=== PATIENT | female | born 1975 | race Caucasian/White ===

== ENCOUNTER 2016-08-19 00:08 | Emergency (ER) | payer OTHER ==
[~2016-08-19] VITALS: Ht 165.1 cm; Wt 111.7 kg
[~2016-08-19 00:08] MED LIST: ATARAX,VISTARIL50 MG PO; ESCITALOPRAM OX10 MG PO; FLEXERIL10 MG PO; JUNEL FE 1.5-31 EACH PO; LISINOPRIL10 MG PO; LISINOPRIL20 MG PO; MOBIC15 MG PO; NAPROSYN500 MG PO; VENTOLIN HFA18 GM IH; Vicodin,Norco 5/325 PO; ZOFRAN4 MG PO; oxyCODONE PO
[2016-08-19] MEDS ORDERED: LOSARTAN POTASS50 MG PO (00:48)
[2016-08-19] MEDS ORDERED: AMLODIPINE BESYL5 MG PO (00:48)
[2016-08-19 01:14] LABS: ADD MIUA? YES; BILIRUBIN NEGATIVE; BLOOD LARGE; COLOR YELLOW ((YELLOW)); GLUCOSE (STRIP) NEGATIVE; KETONES NEGATIVE; LEUKOCYTES NEGATIVE; NITRITE NEGATIVE; PROTEIN (STRIP) NEGATIVE; SPECIFIC GRAVITY 1.028 (1.000-1.030); UROBILINOGEN 0.2 MG/DL (0.2-1.0)
[2016-08-19 01:23] LABS: AMPHETAMINE NEGATIVE (500 ng/mL); BARBITURATES NEGATIVE (200 ng/mL); BENZODIAZEPINES NEGATIVE (150 ng/mL); COCAINE NEGATIVE (150 ng/mL); INTERNAL CONTROLS VALID? YES; METHADONE NEGATIVE (200 ng/mL); METHAMPHETAMINE NEGATIVE (500 ng/mL); OPIATES (MORPHINE) NEGATIVE (100 ng/mL); OXYCODONE NEGATIVE (100 ng/mL); PHENCYCLIDINE NEGATIVE (25 ng/mL); PROPOXYPHENE NEGATIVE (300 ng/mL); THC CANNABINOIDS NEGATIVE (50 ng/mL); TRICYCLIC ANTIDEPRESSANTS NEGATIVE (300 ng/mL)
[2016-08-19 01:26] LABS: BASOPHIL COUNT 0.1 K/uL (0-0.1); EOSINOPHIL (%) 3.2 % (0-5); EOSINOPHIL COUNT 0.3 K/uL (0-0.3); HEMATOCRIT 38.7 % (36.0-46.0); IMMATURE GRANULOCYTE (%) 0.1 % (0.0-0.7); IMMATURE GRANULOCYTE COUNT 0.1 K/uL; LYMPHOCYTE COUNT 2.4 K/uL (1.0-2.8); MCH 30.5 PG (29.0-34.0); MCHC 34.4 G/DL (30.0-36.0); MCV 88.8 FL (83-99); MEAN PLAT.VOLUME 10.7 uM^3 (9.5-12.4); MONOCYTE (%) 6.5 % (3-12); MONOCYTE COUNT 0.6 K/uL (0-0.8); NEUTROPHIL (%) 60.9 % (45-76); NEUTROPHIL COUNT 5.2 K/uL (1.8-6.4); PLATELET COUNT 242 K/uL (156-360); RBC DIS.WIDTH-CV 13.1 % (11.8-14.6); RBC DIS.WIDTH-SD 41.9 % (39-53); RED BLOOD COUNT 4.36 M/uL (3.80-5.20); WHITE BLOOD COUNT 8.5 K/uL (4.1-10.2)
[2016-08-19 01:34] LABS: AMYLASE 28 IU/L (1-118); CHLORIDE 105 mEq/L (99-109); POTASSIUM 3.4 mEq/L (3.7-5.4); SODIUM 140 mEq/L (136-147)
[2016-08-19 01:35] LABS: CASTS NONE SEEN /LPF; EPITHELIAL CELLS 1+; MUCUS NONE SEEN; RED BLOOD CELLS NONE SEEN /HPF (0-5)
[2016-08-19 01:36] LABS: BACTERIA RARE; CRYSTALS NONE SEEN; UCUL ADDED? NO; WHITE BLOOD CELLS 0-5 /HPF (0-5)
[2016-08-19 01:36] LABS: GLUCOSE 89 mg/dL (70-99)
[2016-08-19 01:38] LABS: ANION GAP 12 MEQ/L (2-14)
[2016-08-19 01:39] LABS: SERUM ETHYL ALCOHOL < 10 mg/dL
[2016-08-19 01:40] LABS: GFR ESTIMATE (CALCULATED) > 59 mL/min/
[2016-08-19 01:41] LABS: UREA NITROGEN (BUN) 18 mg/dL (9-23)
[2016-08-19 01:43] LABS: LIPASE 26 U/L (1.0-51.0)
[2016-08-19 01:49] LABS: QUANTITATIVE HCG < 4.0 MIU/ML
[2016-08-19] MEDS ORDERED: MOTRIN800 MG PO (02:14)
[2016-08-19] MEDS ORDERED: FLEXERIL10 MG PO (02:14)
[2016-08-19 02:37] VITALS: BP 133/80
== END 2016-08-19 02:39 | disposition home or self-care (01) ==
LOC: EME → EDBD 00:08 → EME 02:39
PROVIDERS: Emergency Medicine
DX: S20.219A Contusion of unspecified front wall of thorax, initial encounter (principal); S80.01XA Contusion of right knee, initial encounter; S93.601A Unspecified sprain of right foot, initial encounter; I10 Essential (primary) hypertension; V49.40XA Driver injured in collision with unspecified motor vehicles in traffic accident, initial encounter
CPT/HCPCS: 71020; 73030; 73564; 73630; 80048; 81003; 82150; 83690; 84702; 85025; 86850; 86900; 86901; 93005; 99281; 99284; G0480

== ENCOUNTER 2018-01-23 11:56 | Emergency (ER) | payer OTHER ==
[~2018-01-23] VITALS: Ht 165.1 cm; Wt 106.3 kg
[~2018-01-23 11:56] MED LIST changes: +AMLODIPINE BESYL5 MG PO; +LOSARTAN POTASS50 MG PO; +MOTRIN800 MG PO
[2018-01-23 12:37] LABS: HEMATOCRIT 39.1 % (36.0-46.0); HEMOGLOBIN 13.8 G/DL (11.9-15.5); MCH 31.4 PG (29.0-34.0); MCHC 35.3 G/DL (30.0-36.0); MCV 88.9 FL (83-99); PLATELET COUNT 225 K/uL (156-360); RBC DIS.WIDTH-CV 12.4 % (11.8-14.6); RBC DIS.WIDTH-SD 40.6 % (39-53)
[2018-01-23 12:42] LABS: ALBUMIN 5.2 g/dL (3.2-4.8); CHLORIDE 99 mEq/L (99-109); POTASSIUM 3.7 mEq/L (3.7-5.4); SODIUM 139 mEq/L (136-147)
[2018-01-23 12:45] LABS: GLUCOSE 124 mg/dL (70-99)
[2018-01-23 12:46] LABS: TOTAL BILIRUBIN 0.8 mg/dL (0.0-1.0)
[2018-01-23 12:48] LABS: ALKALINE PHOSPHATASE 115 IU/L (3-129); CREATININE 0.7 mg/dL (0.6-1.3); GFR ESTIMATE (CALCULATED) > 59 mL/min/
[2018-01-23 12:49] LABS: UREA NITROGEN (BUN) 14 mg/dL (9-23)
[2018-01-23 12:50] LABS: AST (GOT) 77 IU/L (2-34); DIRECT BILIRUBIN 0.3 mg/dL (0.0-0.3)
[2018-01-23 12:51] LABS: ALT (GPT) 104 IU/L (3-49)
[2018-01-23 12:52] LABS: LIPASE 16 U/L (1.0-51.0)
[2018-01-23 12:57] LABS: QUANTITATIVE HCG < 4.0 MIU/ML
[2018-01-23 13:51] LABS: APPEARANCE CLEAR ((CLEAR)); BILIRUBIN NEGATIVE; BLOOD NEGATIVE; COLOR YELLOW ((YELLOW)); GLUCOSE (STRIP) NEGATIVE; KETONES 20; LEUKOCYTES NEGATIVE; NITRITE NEGATIVE; PROTEIN (STRIP) 100; SPECIFIC GRAVITY 1.024 (1.000-1.030); UROBILINOGEN 0.2 MG/DL (0.2-1.0)
[2018-01-23 13:53] LABS: BACTERIA NONE SEEN /HPF; EPITHELIAL CELLS 1+ /HPF; MUCUS TRACE /LPF; RED BLOOD CELLS 0-5 /HPF (0-5); WHITE BLOOD CELLS 0-5 /HPF (0-5)
[2018-01-23] MEDS ORDERED: ZOFRAN ODT4 MG PO (14:45)
[2018-01-23] MEDS ORDERED: LEVSIN-SL0.125 MG SL (14:45)
[2018-01-23 14:55] VITALS: BP 124/75
== END 2018-01-23 15:05 | disposition home or self-care (01) ==
LOC: EME 11:56
PROVIDERS: Nurse Practitioner Family
DX: R11.2 Nausea with vomiting, unspecified (principal); R19.7 Diarrhea, unspecified; E86.0 Dehydration; K76.0 Fatty (change of) liver, not elsewhere classified; I10 Essential (primary) hypertension
CPT/HCPCS: 74177; 80053; 81003; 82248; 83690; 84702; 85027; 93005; 99281; 99285; J1885; J2060; J7030